=== PATIENT | male | born 1935 | race Caucasian/White ===

== ENCOUNTER → 2019-11-29 11:31 | Outpatient (BNVA) | payer MEDICARE, SELFPAY | PROVIDERS: Family Provider Nurse Practitioner; PCP Orthopaedic Surgery; Referring Provider Nurse Practitioner; Visit Provider Orthopaedic Surgery | DX: M17.0 Bilateral primary osteoarthritis of knee (principal) | CPT/HCPCS: 73560; 73565 ==